=== PATIENT | female | born 1960 | race Caucasian/White ===

== ENCOUNTER 2017-04-15 14:27 | Emergency (ER) | payer MEDICAID, MEDICARE ==
[~2017-04-15] VITALS: Ht 144.8 cm; Wt 55.0 kg
[~2017-04-15 14:27] MED LIST: ACET-2080 PO; AMIT25TA9 PO; HYDR25TA PO; LISI10TA PO; PREG225C PO; SERT50TA12 PO
[2017-04-15] MEDS ORDERED: TRAM50TA4 PO (14:35)
[2017-04-15] MEDS ORDERED: AMOX500C2 PO (14:35)
[2017-04-15 15:07] VITALS: BP 157/98
[2017-04-15] MEDS ORDERED: KETOROLAC TROMETHAMINE 60 MG/2 ML VIAL IM ONE (15:30)
== END 2017-04-15 15:40 | disposition home or self-care (01) ==
LOC: EMS 14:28
DX: G44.209 Tension-type headache, unspecified, not intractable (principal); I10 Essential (primary) hypertension; Z86.73 Personal history of transient ischemic attack (TIA), and cerebral infarction without residual deficits
CPT/HCPCS: 96372; 99283; J1885

== ENCOUNTER 2018-03-10 20:07 | Emergency (ER) | payer MEDICAID, OTHER ==
[~2018-03-10] VITALS: Ht 162.6 cm; Wt 61.4 kg
[~2018-03-10 20:07] MED LIST changes: -ACET-2080 PO; -AMIT25TA9 PO; +AMOX500C2 PO; -HYDR25TA PO; -LISI10TA PO; -PREG225C PO; -SERT50TA12 PO; +TRAM50TA4 PO
[2018-03-10] MEDS ORDERED: LOSA25TA16 PO (21:02)
[2018-03-10] MEDS ORDERED: TOLT2TAB2 PO (21:02)
[2018-03-10] MEDS ORDERED: KETOROLAC TROMETHAMINE 30 MG/ML VIAL IM ONE (21:45)
[2018-03-10 22:31] VITALS: BP 149/84
== END 2018-03-10 22:43 | disposition home or self-care (01) ==
LOC: EMS 20:08
DX: M54.42 Lumbago with sciatica, left side (principal); I10 Essential (primary) hypertension; Z86.79 Personal history of other diseases of the circulatory system; Z79.899 Other long term (current) drug therapy; Z79.2 Long term (current) use of antibiotics
CPT/HCPCS: 96372; 99283; J1885

== ENCOUNTER 2018-03-22 16:16 | Emergency (ER) | payer OTHER ==
[~2018-03-22] VITALS: Ht 144.8 cm; Wt 54.5 kg
[~2018-03-22 16:16] MED LIST changes: +LOSA25TA16 PO; +TOLT2TAB2 PO
[2018-03-22 16:33] LABS: GLUCOSE,POINT OF CARE 97 MG/DL (70-110)
[2018-03-22] MEDS ORDERED: LOSA25TA16 PO (16:51)
[2018-03-22] MEDS ORDERED: TOLT2TAB2 PO (16:52)
[2018-03-22 17:34] LABS: EOSINOPHILS % (AUTO) 1.5 % (1.0-6.0); HEMATOCRIT 41.6 % (36-46); HEMOGLOBIN 14.2 g/dL (12.0-16.0); LYMPHOCYTES # (AUTO) 2.8 K/uL (1.0-4.8); LYMPHOCYTES % (AUTO) 36.7 % (22.0-44.0); MEAN CORPUSCULAR HEMOGLOBIN 30.1 pg (26.0-34.0); MEAN CORPUSCULAR HGB CONC 34.3 G/dL (31.0-37.0); MEAN CORPUSCULAR VOLUME 88 fL (80-100); MONOCYTES # (AUTO) 0.6 K/uL (0.1-1.0); MONOCYTES % (AUTO) 7.6 % (2.0-9.0); NEUTROPHILS % (AUTO) 53.2 % (40.0-70.0); PLATELET COUNT (AUTO) 385 K/uL (150-450); RED BLOOD CELL COUNT(AUTO) 4.73 MIL/uL (4.00-5.20); RED CELL DISTRIBUTION WIDTH 12.5 % (11.5-14.5)
[2018-03-22 17:49] LABS: ANION GAP 5 mmol/L (8-16); CALCIUM, TOTAL 10.7 mg/dL (8.8-10.5); CARBON DIOXIDE 28 mmol/L (22-29); CHLORIDE 105 mmol/L (98-107); CREATININE 0.55 mg/dL (0.60-1.30); GLOMERULAR FILTR. RATE CALC > 60 mL/min (>60); GLUCOSE,RANDOM 86 mg/dL (70-110); POTASSIUM 3.9 mmol/L (3.5-5.1); SODIUM SERUM 138 mmol/L (136-145); UREA NITROGEN, BLOOD 14 mg/dL (7-18)
[2018-03-22 17:54] LABS: ALANINE AMINOTRANSFERASE 30 U/L (12-78); ALBUMIN 4.1 g/dL (3.4-5.0); ALKALINE PHOSPHATASE 126 U/L (46-116); ASPARTATE AMINOTRANSFERASE 18 U/L (15-37); BILIRUBIN,TOTAL 0.5 mg/dL (0.1-1.0); TOTAL PROTEIN, SERUM 7.9 g/dL (6.4-8.2)
[2018-03-22 19:00] VITALS: BP 146/90
== END 2018-03-22 19:02 | disposition home or self-care (01) ==
LOC: EMS 16:17
DX: R42 Dizziness and giddiness (principal); R51 Headache; R41.0 Disorientation, unspecified; I10 Essential (primary) hypertension; Z86.79 Personal history of other diseases of the circulatory system; Z90.710 Acquired absence of both cervix and uterus; Z79.899 Other long term (current) drug therapy
CPT/HCPCS: 70450; 93005; 99285

== ENCOUNTER 2019-12-10 11:48 | Emergency (ER) | payer MEDICAID, OTHER ==
[~2019-12-10] VITALS: Ht 152.4 cm; Wt 54.5 kg
[~2019-12-10 11:48] MED LIST changes: -AMOX500C2 PO; -LOSA25TA16 PO; +LOSA25TA71 PO
[2019-12-10] MEDS ORDERED: AMLO5TAB66 PO (12:01)
[2019-12-10] MEDS ORDERED: MECLIZINE HCL 25 MG TABLET PO ONE (12:30)
[2019-12-10] MEDS ORDERED: ONDANSETRON HCL 4 MG TABLET PO ONE (12:30)
[2019-12-10 13:02] LABS: BASOPHILS % (AUTO) 0.5 % (0.0-2.0); EOSINOPHILS % (AUTO) 0.4 % (1.0-6.0); HEMATOCRIT 40.9 % (36-46); HEMOGLOBIN 13.8 g/dL (12.0-16.0); LYMPHOCYTES # (AUTO) 1.6 K/uL (1.0-4.8); LYMPHOCYTES % (AUTO) 15.2 % (22.0-44.0); MEAN CORPUSCULAR HGB CONC 33.7 G/dL (31.0-37.0); MEAN CORPUSCULAR VOLUME 89 fL (80-100); MONOCYTES # (AUTO) 0.7 K/uL (0.1-1.0); MONOCYTES % (AUTO) 6.8 % (2.0-9.0); NEUTROPHILS % (AUTO) 77.1 % (40.0-70.0); PLATELET COUNT (AUTO) 348 K/uL (150-450); RED BLOOD CELL COUNT(AUTO) 4.58 MIL/uL (4.00-5.20); RED CELL DISTRIBUTION WIDTH 12.7 % (11.5-14.5)
[2019-12-10 13:47] LABS: ANION GAP 8 mmol/L (8-16); CALCIUM, TOTAL 9.3 mg/dL (8.8-10.5); CARBON DIOXIDE 29 mmol/L (22-29); CHLORIDE 101 mmol/L (98-107); CREATININE 0.57 mg/dL (0.60-1.30); GLOMERULAR FILTR. RATE CALC > 60 mL/min (>60); GLUCOSE,RANDOM 102 mg/dL (70-110); POTASSIUM 3.7 mmol/L (3.5-5.1); SODIUM SERUM 138 mmol/L (136-145); UREA NITROGEN, BLOOD 15 mg/dL (7-18)
[2019-12-10 13:53] LABS: ALANINE AMINOTRANSFERASE 33 U/L (12-78); ALBUMIN 4.3 g/dL (3.4-5.0); ALKALINE PHOSPHATASE 82 U/L (46-116); ASPARTATE AMINOTRANSFERASE 22 U/L (15-37); BILIRUBIN,TOTAL 0.6 mg/dL (0.1-1.0); TOTAL PROTEIN, SERUM 8.3 g/dL (6.4-8.2)
[2019-12-10 14:03] VITALS: BP 130/82
== END 2019-12-10 14:16 | disposition home or self-care (01) ==
LOC: EMS 11:49
DX: H81.10 Benign paroxysmal vertigo, unspecified ear (principal); R11.0 Nausea; I10 Essential (primary) hypertension; Z90.710 Acquired absence of both cervix and uterus; Z88.6 Allergy status to analgesic agent; Z88.5 Allergy status to narcotic agent
CPT/HCPCS: 36415; 80053; 84484; 85025; 93005; 99284; Q0162